=== PATIENT | female | born 1980 | race Caucasian/White ===

== ENCOUNTER → 2017-05-24 | Outpatient (CLI) | payer OTHER ==
[~2017-05-24] MED LIST: BENADRYL25 M1 PO; FAMOTIDINE PO; NO MEDICATIONS; PREDNISONE PO
--- NOTE | ~2017-05-24 | CR58 ---
[facility] A Service of [facility] RADIOLOGY TEXT RESULTS PATIENT: OPAL DIOP LOCATION: [facility] : 78 UNIT #: [id number] AGE: [address]: Cata Holcomb SEX: F ORDER DR: [id number] [address] [address] [id number] O MR#: [id number] Acc #: [id number] NAME: OPAL DIOP : 1980 SEX: F STUDY DATE/TIME: 05/24/2017 11:13 UNIT: [facility] ROOM: STUDY DESCRIPTION: CR Cervical Spine 2 or 3 Views Attending Physician: Cata Holcomb A.P.R.N. Referring Physician: Cata Holcomb A.P.R.N. Ordering Physician: Cata Holcomb A.P.R.N. Primary Care Physician: Cata Holcomb A.P.R.N. MEDICAL IMAGING REPORT This report is preliminary unless electronic signature is present. EXAM Cervical spine series dated 05/24/2017. COMPARISON None. HISTORY Neck pain for a month. Left shoulder pain too. Tingling in the left hand. FINDINGS Frontal, lateral, open mouth C1-2 and odontoid tip views were obtained. No acute displaced fracture or subluxation. Vertebral body heights and alignment are preserved. Pre and paravertebral soft tissues are unremarkable. There is straightening of normal cervical curvature which could be due to positioning or muscle spasm. Adjacent soft tissues are within normal limits. IMPRESSION 1. No acute displaced fracture or subluxation. 2. There is straightening of normal cervical curvature, likely due to muscle spasm or positioning. 1. Dictated by... Catia Ferrell M.D. THIS IS AN ELECTRONICALLY VERIFIED REPORT Catia Ferrell M.D. at 05/26/2017 9:14 PM CPR/rnr TD: 05/25/2017 02:41 JOB #: [id number] [facility] A Service of [facility] RADIOLOGY TEXT RESULTS PATIENT: OPAL DIOP LOCATION: [facility] : 78 UNIT #: [id number] AGE: [address]: Cata Holcomb SEX: F ORDER DR: MEDICAL IMAGING REPORT Page 1 of 1
== END | disposition home or self-care (01) ==
LOC: SRAD 10:53
DX: M54.2 Cervicalgia (principal)
CPT/HCPCS: 72040